=== PATIENT | male | born 1970 | race Caucasian/White ===

== ENCOUNTER 2022-04-21 21:50 | Inpatient (IN) | payer MEDICAID ==
[~2022-04-21] VITALS: Ht 170.2 cm; Wt 77.3 kg
[2022-04-21] MEDS: diatr meglu/diatrizoate 30ml oral sol.-(3 dose) bottle PO SCH (23:40)
[2022-04-21] MEDS ORDERED: IOHEXOL 12MG/ML oral solution 500 ML BOTTLE PO ONE (23:45)
[2022-04-21] MEDS ORDERED: iohexol 350MG/ML 100ml bottle IV ONE (23:47)
[2022-04-22] MEDS ORDERED: morphine 4 MG/ML inj SYRINge IV ONE
[2022-04-22] MEDS: diatr meglu/diatrizoate 30ml oral sol.-(3 dose) bottle PO SCH ×2 (00:25→01:10)
[2022-04-22 01:30] LABS: BASOPHILS # (AUTO) 0.1 X10'3 (0-0.2); BASOPHILS % (AUTO) 1.3 % (0-1); EOSINOPHILS # (AUTO) 0.3 X10'3 (0-0.9); EOSINOPHILS % (AUTO) 3.2 % (0-6); HEMATOCRIT 29.8 % (42.0-52.0); HEMOGLOBIN 9.8 g/dl (14.0-17.9); LYMPHOCYTES % (AUTO) 29.4 % (21-51); MEAN CORPUSCULAR HEMOGLOBIN 30.1 PG (27.0-31.0); MEAN CORPUSCULAR HGB CONC 32.8 g/dL (33.0-36.5); MEAN CORPUSCULAR VOLUME 91.6 FL (78-98); MEAN PLATELET VOLUME 7.4 FL (7.4-10.4); MONOCYTES # (AUTO) 1.1 X10'3 (0-0.9); MONOCYTES % (AUTO) 11.1 % (2-12); NEUTROPHILS # (AUTO) 5.6 X10'3 (1.8-7.7); PLATELET COUNT 358 X10'3 (140-440); RED BLOOD COUNT 3.25 X10'6 (4.70-6.10); RED CELL DISTRIBUTION WIDTH 16.5 % (11.5-14.5); WHITE BLOOD COUNT 10.2 X10'3 (4.5-11.0)
[2022-04-22 01:46] LABS: ALANINE AMINOTRANSFERASE 50 U/L (12-78); ALBUMIN 2.7 G/DL (3.4-5.0); ALBUMIN/GLOBULIN RATIO 0.5 (1.1-1.5); ALKALINE PHOSPHATASE 284 IU/L (46-116); ANION GAP 7 (8-16); ASPARTATE AMINO TRANSFERASE 40 U/L (10-37); BILIRUBIN,TOTAL 0.2 MG/DL (0.1-1.0); BLOOD UREA NITROGEN 8 MG/DL (7-18); BUN/CREATININE RATIO 12.3 (5.4-32.0); CHLORIDE 93 MMOL/L (99-107); CREATININE 0.65 MG/DL (0.60-1.10); GLUCOSE 112 MG/DL (70-104); POTASSIUM 4.2 MMOL/L (3.5-5.1); SODIUM 126 MMOL/L (135-145); TOTAL CARBON DIOXIDE 25.8 MMOL/L (24-32); TOTAL PROTEIN 8.2 G/DL (6.4-8.2); eGFR > 90 ML/MIN
[2022-04-22] MEDS ORDERED: vancomycin/NS 1 GM ADD-VANTAGE 250 ML IV ONE (03:40)
[2022-04-22 04:13] LABS: CLARITY,URINE CLEAR (Clear); GLUCOSE, URINE NEGATIVE (Neg); KETONES,URINE NEGATIVE (Neg); LEUKOCYTE ESTERASE ,URINE NEGATIVE (Neg); NITRITES, URINE NEGATIVE (Neg); OCCULT BLOOD,URINE NEGATIVE (Neg); PROTEIN,URINE NEGATIVE (Neg); UROBILINOGEN,URINE 0.2 E.U/dL (0.2-1.0)
[2022-04-22] MEDS ORDERED: bisacodyl 10mg suppository rectal RC PRN (04:15)
[2022-04-22] MEDS ORDERED: diphenhydrAMINE 50 mg/ml inj IV PRN (04:15)
[2022-04-22] MEDS ORDERED: HYDROcodone/acetaminophen 5mg/325mg tablet PO PRN (04:15)
[2022-04-22] MEDS ORDERED: acetaminophen 325mg tablet PO PRN ×2 (04:15)
[2022-04-22] MEDS ORDERED: morphine 2 MG/ML inj. syringe IV PRN (04:15)
[2022-04-22] MEDS ORDERED: HYDROmorphone inj. 0.5 MG/0.5 ML DISP.SYRIN IV PRN (04:15)
[2022-04-22] MEDS ORDERED: ondansetron 4mg rapidly disintigrating tab PO PRN (04:15)
[2022-04-22] MEDS ORDERED: acetaminophen 650mg rectal suppository RC PRN (04:15)
[2022-04-22] MEDS ORDERED: magnesium hydroxide 30ml (MOM) UD suspension PO PRN (04:15)
[2022-04-22] MEDS ORDERED: mag hydrox/Alum hydrox/simeth 30ml oral suspension PO PRN (04:15)
[2022-04-22] MEDS ORDERED: ondansetron/PF 4mg/2ml inj IV PRN (04:15)
[2022-04-22] MEDS ORDERED: diphenhydrAMINE 25mg capsule PO PRN (04:15)
[2022-04-22 04:16] LABS: COLOR,URINE STRAW (Yellow); UA COLLECTION TYPE NON-SPECIFIED
[2022-04-22] MEDS: dextrose 5%-1/2 normal saline 1,000 ML IV SCH ×2 (05:31→16:27)
[2022-04-22] MEDS: morphine 2 MG/ML inj. syringe IV PRN ×4 (05:31→22:11)
[2022-04-22] MEDS: ringers solution, lacted 1,000 ML IV SCH ×2 (05:32→14:20)
[2022-04-22] MEDS: ipratropium/albuterol 3ml nebule NEB SCH ×5 (07:00→23:00)
[2022-04-22 07:23] LABS: APTT 40 SECONDS (22-32)
[2022-04-22] MEDS: pantoprazole 40MG/NS 100ML BAG 100 ML IV SCH (07:30)
[2022-04-22] MEDS: docusate sod 100mg capsule PO SCH ×2 (07:36→18:32)
[2022-04-22] MEDS: HYDROcodone/acetaminophen 10/325mg tab PO PRN ×3 (07:37→20:33)
[2022-04-22] MEDS: piperacillin/tazo 4.5gm/100ml 100 ML IV SCH ×3 (07:40→23:21)
[2022-04-22 07:47] LABS: C-REACTIVE PROTEIN 3.22 MG/DL (0.0-0.5); CREATINE KINASE 39 U/L (39-308); LACTATE DEHYDROGENASE 175 U/L (85-227); LIPASE 135 U/L (73-393); PHOSPHORUS 5.1 MG/DL (2.3-4.5)
[2022-04-22] MEDS ORDERED: vancomycin/NS 1 GM ADD-VANTAGE 250 ML IV SCH (08:00)
[2022-04-22 08:59] LABS: URINE AMPHETAMINE SCREEN NEGATIVE (Neg); URINE BARBITUATE SCREEN NEGATIVE (Neg); URINE BENZODIAZEPINES SCREEN NEGATIVE (Neg); URINE CANNABINOID SCREEN NEGATIVE (Neg); URINE COCAINE SCREEN NEGATIVE (Neg); URINE METHADONE SCREEN NEGATIVE (Neg); URINE OPIATE SCREEN POSITIVE (Neg); URINE PHENCYCLIDINE SCREEN NEGATIVE (Neg)
--- NOTE | 2022-04-22 10:26 | NUR ---
PATIENT C/O CONSTIPATION AND REQUESTS TO HAVE SUPPOSITORY. MESSAGE SENT TO DR. LAWTON. PAGER ID: [phone] MESSAGE: ER BED #14 REDER. PATIENT C/O CONSTIPATION AND WOULD LIKE TO HAVE A DULCOLAX SUPPOSITORY. THANKS, CHRIS [id number]
[2022-04-22 11:57] LABS: HIV ANTIBODY 1&2 RAPID NON-REACTIVE (Neg)
[2022-04-22] MEDS ORDERED: bisacodyl 10mg suppository rectal RC STA (12:10)
[2022-04-22] MEDS ORDERED: ZINC220C12 PO (13:16)
[2022-04-22] MEDS ORDERED: FLUT1BLS4 INH (13:16)
[2022-04-22] MEDS ORDERED: PANT-47 PO (13:16)
[2022-04-22] MEDS ORDERED: MEGE400O6 PO (13:16)
[2022-04-22] MEDS ORDERED: ALB0.5UD NEB (13:16)
[2022-04-22] MEDS ORDERED: HYDR-3964 PO (13:16)
--- NOTE | 2022-04-22 17:23 | NUR ---
PT HAD TWO LARGE BOWEL MOVEMENTS AFTER THE DUCOLOX SUPPOSITORY WAS ADMINISTERED. BOTH BM WERE SOFT.
[2022-04-22] MEDS: VANCOmycin 1250MG/NS 250ml Bag 250 ML IV SCH (17:43)
[2022-04-22] MEDS ORDERED: temazepam 15mg capsule PO PRN (21:00)
--- NOTE | 2022-04-22 22:22 | NUR ---
While giving patient last dose of Morphine, patient looked at nurses watch whispered "1012" and began counting on his fingers when the next dose can be given.
--- NOTE | 2022-04-22 23:21 | NUR ---
1600 Zosyn was hung but never started on dya shift - Zosyn started at 1900 upon assessment of NOC shift nurse, 0000 dosage non-admin d/t q8hr order
[2022-04-23] MEDS: dextrose 5%-1/2 normal saline 1,000 ML IV SCH ×2 (00:12→05:30)
[2022-04-23] MEDS: ringers solution, lacted 1,000 ML IV SCH (00:18)
[2022-04-23 01:00] VITALS: BP 111/77
--- NOTE | 2022-04-23 01:00 | NUR ---
PATIENT ADMITTED TO ROOM 4014A FROM ER FOR POST OP ABDOMINAL ABSCESS. PLACED COMFORTABLE IN BED. VITAL SIGNS TAKEN AND RECORDED.
[2022-04-23] MEDS: morphine 2 MG/ML inj. syringe IV PRN ×5 (02:10→19:10)
[2022-04-23] MEDS: ipratropium/albuterol 3ml nebule NEB SCH ×2 (03:00→07:00)
[2022-04-23] MEDS: HYDROcodone/acetaminophen 10/325mg tab PO PRN ×4 (03:45→22:14)
[2022-04-23] MEDS: VANCOmycin 1250MG/NS 250ml Bag 250 ML IV SCH (05:29)
[2022-04-23 06:00] VITALS: BP 159/75
[2022-04-23 06:28] LABS: BASOPHILS # (AUTO) 0.1 X10'3 (0-0.2); BASOPHILS % (AUTO) 0.3 % (0-1); EOSINOPHILS # (AUTO) 0.1 X10'3 (0-0.9); EOSINOPHILS % (AUTO) 0.4 % (0-6); HEMATOCRIT 27.5 % (42.0-52.0); HEMOGLOBIN 8.9 g/dl (14.0-17.9); LYMPHOCYTES # (AUTO) 2.2 X10'3 (1.1-4.8); LYMPHOCYTES % (AUTO) 9.4 % (21-51); MEAN CORPUSCULAR HEMOGLOBIN 29.2 PG (27.0-31.0); MEAN CORPUSCULAR HGB CONC 32.5 g/dL (33.0-36.5); MEAN PLATELET VOLUME 7.8 FL (7.4-10.4); MONOCYTES # (AUTO) 2.5 X10'3 (0-0.9); MONOCYTES % (AUTO) 10.5 % (2-12); NEUTROPHILS # (AUTO) 18.6 X10'3 (1.8-7.7); NEUTROPHILS % (AUTO) 79.4 % (42-75); PLATELET COUNT 355 X10'3 (140-440); RED BLOOD COUNT 3.06 X10'6 (4.70-6.10); RED CELL DISTRIBUTION WIDTH 16.5 % (11.5-14.5); WHITE BLOOD COUNT 23.4 X10'3 (4.5-11.0)
--- NOTE | 2022-04-23 06:33 | NUR ---
Problems reprioritized. Patient report given, questions answered & plan of care reviewed with NIHARIKA CHAO.
[2022-04-23 06:47] LABS: ALANINE AMINOTRANSFERASE 32 U/L (12-78); ALBUMIN 2.3 G/DL (3.4-5.0); ALBUMIN/GLOBULIN RATIO 0.5 (1.1-1.5); ALKALINE PHOSPHATASE 226 IU/L (46-116); ANION GAP 11 (8-16); ASPARTATE AMINO TRANSFERASE 25 U/L (10-37); BILIRUBIN,TOTAL 0.3 MG/DL (0.1-1.0); BLOOD UREA NITROGEN 4 MG/DL (7-18); BUN/CREATININE RATIO 7.7 (5.4-32.0); CALCIUM 9.2 MG/DL (8.5-10.1); CHLORIDE 94 MMOL/L (99-107); CREATININE 0.52 MG/DL (0.60-1.10); GLUCOSE 108 MG/DL (70-104); POTASSIUM 3.9 MMOL/L (3.5-5.1); SODIUM 126 MMOL/L (135-145); TOTAL CARBON DIOXIDE 20.9 MMOL/L (24-32); TOTAL PROTEIN 7.4 G/DL (6.4-8.2); eGFR > 90 ML/MIN
[2022-04-23 07:07] LABS: TOTAL CELLS COUNTED 100
[2022-04-23 07:09] LABS: ANISOCYTOSIS 1+; LARGE PLATELETS FEW; PLATELET ESTIMATE NORMAL
[2022-04-23] MEDS: docusate sod 100mg capsule PO SCH ×2 (08:00→20:01)
[2022-04-23] MEDS: normal saline 1000ml 1,000 ML IV SCH ×2 (08:52→22:16)
[2022-04-23] MEDS: piperacillin/tazo 4.5gm/100ml 100 ML IV SCH ×2 (08:52→16:35)
[2022-04-23 10:00] VITALS: BP 114/72
[2022-04-23] MEDS: pantoprazole 40MG/NS 100ML BAG 100 ML IV SCH (10:12)
[2022-04-23] MEDS: linezolid 600mg tablet PO SCH ×2 (12:16→20:01)
[2022-04-23] MEDS: fluconazole 100mg tablet PO SCH (12:18)
--- NOTE | 2022-04-23 14:17 | NUR ---
PRESSURE ULCER EDUCATION: DEFINITION: A pressure ulcer is an area of skin that breaks down when you stay in one position too long. The constant pressure against the skin reduces the blood flow to that area and the affected tissue dies. CAUSES: "Being bedridden or in a wheelchair "Fragile skin "Having a chronic condition, such as diabetes or vascular disease "Inability to move certain parts of your body without assistance "Older age "Incontinence of urine or stool SYMPTOMS: "A reddened area that DOES NOT turn white when pressed on - this can be the beginning of a pressure ulcer "A blister, deep sore or a crater - these can be advanced pressure ulcers FIRST AID: "Relieve the pressure on this area "Keep the area clean and dry "Call your primary doctor if you see any of the above symptoms "DO NOT massage the area "DO NOT use a donut shaped or ring shaped pillow- these actually interfere with the blood flow and cause complications PREVENTION: "Check for pressure ulcers everyday "Change position at least every two hours to relieve pressure "Use items that help relieve pressure- pillows, sheepskin, foam padding, and powders. "Keep skin clean and dry "Eat healthy well balanced meals "Exercise daily IF YOU SEE ANY OF THESE SYMPTOMS WHILE IN THE HOSPITAL - TELL YOUR NURSE IMMEDIATELY. IF YOU SEE ANY OF THESE SYMPTOMS WHILE AT HOME OR HAVE ANY QUESTIONS OR CONCERNS ABOUT PRESSURE ULCERS - CALL YOUR PRIMARY DOCTOR IMMEDIATELY. Addendum: 04/23/22 at 1417 by Angela Coats LVN Amended: Links added.
--- NOTE | 2022-04-23 15:53 | NUR ---
administered Hydrocodone/acetamenophen to patient. First he states i would like the Morphine first because it just works better. I would then like to save that med in your hand for later. I instructed pt that he cannot save pain meds for later. He then states well when i was at "[facility]" I got 2 Montrose's when I wanted it and that stopped the pain.
--- NOTE | 2022-04-23 16:06 | NUR ---
Charting by Duy [place] reviewedf by Janet Martino RN
[2022-04-23 18:00] VITALS: BP 127/78
--- NOTE | 2022-04-23 18:52 | NUR ---
patient was seen by Dr georges, order given to remove allen catheter and DC PICC. patient very reluctant to have allen removed , educated with regards protocol for this, compliant to have condom catheter, and Ok by Dr Phelps. Refused to have PICC line removed. Dr Phelps stated ok to keep it in for now as patient is on multiple ABX. seen also by Dr Francis see note. . patient asking over and over for morphine. Educated on pain relief and protocol at [facility], compliant. Report given to Unique CHAO
[2022-04-23] MEDS ORDERED: HYDROcodone/acetaminophen 5mg/325mg tablet PO PRN (20:45)
[2022-04-23 22:00] VITALS: BP 106/65
[2022-04-23] MEDS: megestrol acetate 400mg/10ml UD oral suspension PO SCH (22:04)
[2022-04-24] MEDS: morphine 2 MG/ML inj. syringe IV PRN ×5 (00:08→20:44)
[2022-04-24] MEDS: piperacillin/tazo 4.5gm/100ml 100 ML IV SCH ×3 (00:08→16:27)
[2022-04-24] MEDS: albuterol 2.5 MG/3 ML nebule NEB SCH ×4 (02:50→21:00)
[2022-04-24] MEDS: HYDROcodone/acetaminophen 10/325mg tab PO PRN ×5 (03:11→22:51)
--- NOTE | 2022-04-24 03:33 | NUR ---
INTERNAL AUDIT MANAGER documentation: I have reviewed and agree with all interventions, assessments performed and documented by Chikis VILLARREAL.
[2022-04-24] MEDS ORDERED: VANCOMYCIN LEVEL IV ONE (04:30)
[2022-04-24 06:00] VITALS: BP 117/75
--- NOTE | 2022-04-24 06:48 | NUR ---
Problems reprioritized. Patient report given, questions answered & plan of care reviewed with Leodan CHAO.
[2022-04-24 07:13] LABS: BASOPHILS # (AUTO) 0.1 X10'3 (0-0.2); BASOPHILS % (AUTO) 0.3 % (0-1); EOSINOPHILS # (AUTO) 0.4 X10'3 (0-0.9); EOSINOPHILS % (AUTO) 2.3 % (0-6); HEMATOCRIT 24.9 % (42.0-52.0); HEMOGLOBIN 8.3 g/dl (14.0-17.9); LYMPHOCYTES # (AUTO) 2.4 X10'3 (1.1-4.8); LYMPHOCYTES % (AUTO) 14.9 % (21-51); MEAN CORPUSCULAR HEMOGLOBIN 29.6 PG (27.0-31.0); MEAN CORPUSCULAR HGB CONC 33.1 g/dL (33.0-36.5); MEAN CORPUSCULAR VOLUME 89.5 FL (78-98); MEAN PLATELET VOLUME 7.5 FL (7.4-10.4); MONOCYTES # (AUTO) 1.5 X10'3 (0-0.9); MONOCYTES % (AUTO) 9.6 % (2-12); NEUTROPHILS # (AUTO) 11.5 X10'3 (1.8-7.7); NEUTROPHILS % (AUTO) 72.9 % (42-75); PLATELET COUNT 313 X10'3 (140-440); RED BLOOD COUNT 2.79 X10'6 (4.70-6.10); RED CELL DISTRIBUTION WIDTH 15.9 % (11.5-14.5); WHITE BLOOD COUNT 15.8 X10'3 (4.5-11.0)
[2022-04-24] MEDS: pantoprazole 40mg Tablet.DR PO SCH ×3 (07:30→20:44)
[2022-04-24 07:36] LABS: ALANINE AMINOTRANSFERASE 26 U/L (12-78); ALBUMIN 2.3 G/DL (3.4-5.0); ALBUMIN/GLOBULIN RATIO 0.5 (1.1-1.5); ALKALINE PHOSPHATASE 185 IU/L (46-116); ANION GAP 11 (8-16); ASPARTATE AMINO TRANSFERASE 21 U/L (10-37); BILIRUBIN,TOTAL 0.3 MG/DL (0.1-1.0); BLOOD UREA NITROGEN 5 MG/DL (7-18); BUN/CREATININE RATIO 10.4 (5.4-32.0); CALCIUM 8.6 MG/DL (8.5-10.1); CHLORIDE 96 MMOL/L (99-107); CREATININE 0.48 MG/DL (0.60-1.10); GLUCOSE 106 MG/DL (70-104); POTASSIUM 3.1 MMOL/L (3.5-5.1); SODIUM 130 MMOL/L (135-145); TOTAL CARBON DIOXIDE 23.3 MMOL/L (24-32); TOTAL PROTEIN 6.9 G/DL (6.4-8.2); eGFR > 90 ML/MIN
[2022-04-24] MEDS: megestrol acetate 400mg/10ml UD oral suspension PO SCH (08:00)
[2022-04-24] MEDS: (Fluticasone/Umeclidin/Vilanter (Trelegy Ellipta 100-62.5-25) 1 PUFFS) IH SCH (08:00)
[2022-04-24] MEDS: docusate sod 100mg capsule PO SCH ×2 (08:00→20:00)
[2022-04-24] MEDS: linezolid 600mg tablet PO SCH ×2 (08:35→21:02)
[2022-04-24] MEDS: fluconazole 100mg tablet PO SCH (08:36)
[2022-04-24] MEDS: normal saline 1000ml 1,000 ML IV SCH ×3 (08:36→23:40)
[2022-04-24] MEDS ORDERED: potassium CL 10mEq/100ml bag 100 ML IV PRN (09:55)
[2022-04-24] MEDS ORDERED: POTASSIUM BICARB 20meq eff tab 20 MEQ TABLET.EFF PO PRN (09:55)
[2022-04-24] MEDS ORDERED: magnesium 4gm in 100ml NS 100 ML IV PRN (09:55)
[2022-04-24] MEDS ORDERED: magnesium 2GM in 50ml NS 50 ML IV PRN (09:55)
[2022-04-24 10:00] VITALS: BP 108/71
[2022-04-24 10:28] LABS: MAGNESIUM 1.5 MG/DL (1.5-2.4)
[2022-04-24] MEDS: zinc sulfate 220mg capsule PO SCH ×2 (10:39→20:00)
[2022-04-24] MEDS: POTASSIUM BICARB 20meq eff tab 20 MEQ TABLET.EFF PO PRN ×3 (10:42→21:02)
--- NOTE | 2022-04-24 13:22 | NUR ---
Initial: Pt admit for intra-abdominal abscess s/p hernia repair surgery and sepsis. Per wound care note abdominal surgical wounds are full thickness and pt with a stage II PU to sacrum. Noted pt receiving Zyvox during admit. Attempted three visits at bedside for high protein and low tyramine nutrition therapy education however pt unavailable each time. Will attempt visit at another time. Pt initially on a CHO controlled diet documented with 50% PO intake of first meal up to 75% PO intake of second meal. D/w RN recommendation for diet change to regular as pt with no documented PMH DM and BG levels controlled during admit. LBM 04/24, receiving routine and PRN bowel care. Will continue to follow closely and monitor need for nutrition intervention pending further trends in PO intake. Recommendations: 1) Continue regular diet 2) Monitor need for ONS/additional protein 3) Routine bowel care 4) Scaled weight this admit; subsequent weekly scaled weights Addendum: 04/24/22 at [address] Amended: Links added.
[2022-04-24 18:00] VITALS: BP 120/77
--- NOTE | 2022-04-24 19:31 | NUR ---
Patient in room ORTHO 4014. I have received report from JEREMIE Alcocer and had the opportunity to ask questions and assume patient care. Pt in bed resting. Fluids verified.
[2022-04-24] MEDS: K and/or MAG REPLACEMENT MC SCH (20:57)
[2022-04-24 22:00] VITALS: BP 130/86
[2022-04-25] MEDS: piperacillin/tazo 4.5gm/100ml 100 ML IV SCH ×3 (00:22→16:10)
[2022-04-25] MEDS: morphine 2 MG/ML inj. syringe IV PRN ×4 (02:21→18:54)
[2022-04-25] MEDS: albuterol 2.5 MG/3 ML nebule NEB SCH ×4 (03:00→20:00)
[2022-04-25 05:00] VITALS: BP 130/84
[2022-04-25] MEDS: HYDROcodone/acetaminophen 10/325mg tab PO PRN ×4 (06:03→20:34)
--- NOTE | 2022-04-25 06:40 | NUR ---
Problems reprioritized. Patient report given, questions answered & plan of care reviewed with Kate at bedside. Drip verified. Pt in no acute distress at time of handoff.
--- NOTE | 2022-04-25 06:48 | NUR ---
Patient in room ORTHO 4014. I have received report from JEREMIE Khan and had the opportunity to ask questions and assume patient care.
[2022-04-25 07:16] LABS: BASOPHILS # (AUTO) 0.1 X10'3 (0-0.2); BASOPHILS % (AUTO) 0.8 % (0-1); EOSINOPHILS # (AUTO) 0.5 X10'3 (0-0.9); EOSINOPHILS % (AUTO) 5.6 % (0-6); HEMOGLOBIN 8.6 g/dl (14.0-17.9); LYMPHOCYTES # (AUTO) 2.1 X10'3 (1.1-4.8); MEAN CORPUSCULAR HEMOGLOBIN 29.7 PG (27.0-31.0); MEAN CORPUSCULAR HGB CONC 33.1 g/dL (33.0-36.5); MEAN CORPUSCULAR VOLUME 89.7 FL (78-98); MEAN PLATELET VOLUME 7.5 FL (7.4-10.4); MONOCYTES # (AUTO) 0.8 X10'3 (0-0.9); MONOCYTES % (AUTO) 9.4 % (2-12); NEUTROPHILS # (AUTO) 5.4 X10'3 (1.8-7.7); NEUTROPHILS % (AUTO) 60.2 % (42-75); PLATELET COUNT 338 X10'3 (140-440); RED CELL DISTRIBUTION WIDTH 15.6 % (11.5-14.5); WHITE BLOOD COUNT 8.9 X10'3 (4.5-11.0)
[2022-04-25 07:33] LABS: ALANINE AMINOTRANSFERASE 23 U/L (12-78); ALBUMIN 2.4 G/DL (3.4-5.0); ALBUMIN/GLOBULIN RATIO 0.5 (1.1-1.5); ALKALINE PHOSPHATASE 172 IU/L (46-116); ANION GAP 8 (8-16); ASPARTATE AMINO TRANSFERASE 21 U/L (10-37); BILIRUBIN,TOTAL 0.2 MG/DL (0.1-1.0); BLOOD UREA NITROGEN 5 MG/DL (7-18); BUN/CREATININE RATIO 10.2 (5.4-32.0); CALCIUM 8.7 MG/DL (8.5-10.1); CHLORIDE 96 MMOL/L (99-107); CREATININE 0.49 MG/DL (0.60-1.10); GLUCOSE 105 MG/DL (70-104); MAGNESIUM 1.4 MG/DL (1.5-2.4); POTASSIUM 3.5 MMOL/L (3.5-5.1); SODIUM 129 MMOL/L (135-145); eGFR > 90 ML/MIN
[2022-04-25] MEDS: zinc sulfate 220mg capsule PO SCH ×2 (08:00→20:00)
[2022-04-25] MEDS: docusate sod 100mg capsule PO SCH ×2 (08:00→20:29)
[2022-04-25] MEDS: pantoprazole 40mg Tablet.DR PO SCH ×3 (08:00→20:29)
[2022-04-25] MEDS: (Fluticasone/Umeclidin/Vilanter (Trelegy Ellipta 100-62.5-25) 1 PUFFS) IH SCH (08:00)
[2022-04-25] MEDS: K and/or MAG REPLACEMENT MC SCH ×2 (08:00→20:00)
[2022-04-25] MEDS: megestrol acetate 400mg/10ml UD oral suspension PO SCH (08:00)
[2022-04-25] MEDS: linezolid 600mg tablet PO SCH ×2 (08:24→20:29)
[2022-04-25] MEDS: fluconazole 100mg tablet PO SCH (08:26)
[2022-04-25] MEDS: normal saline 1000ml 1,000 ML IV SCH (09:40)
[2022-04-25 10:00] VITALS: BP 135/85
--- NOTE | 2022-04-25 11:44 | NUR ---
F/u: Pt seen at bedside for written and verbal high protein and low tyramine nutrition therapy education. All of patient's questions were answered at this time. RD contact information provided and pt encouraged to reach out if needed. Pt endorses a good appetite and states he isn't quite getting full from meals. Food preferences were obtained and d/w dietary, see below. Pt denies food allergies or difficulty chewing/swallowing. LBM 04/25. Will continue to follow. Recommendations: 1) Continue regular diet 2) [place] food preferences: [place] juice WB; strawberry yogurt BIDBL; soda and double meat BIDLD; no hot cereal 3) Routine bowel care 4) Scaled weight this admit; subsequent weekly scaled weights Addendum: 04/25/22 at [address] Amended: Links added.
--- NOTE | 2022-04-25 15:23 | NUR ---
PAGER ID: [phone] MESSAGE: Elisa [phone] [place] room 4014A - patient would like to know how much longer is he going to be staying here and what the plan is.
[2022-04-25] MEDS: magnesium Cl slow-release 64mg tablet PO PRN (17:46)
[2022-04-25 18:00] VITALS: BP 148/93
--- NOTE | 2022-04-25 18:23 | NUR ---
Problems reprioritized. Patient report given, questions answered & plan of care reviewed with JEREMIE Miller.
--- NOTE | 2022-04-25 18:43 | NUR ---
Patient in room ORTHO 4014. I have received report from JONES CHAO and had the opportunity to ask questions and assume patient care.
[2022-04-25 22:00] VITALS: BP 137/87
[2022-04-25] MEDS ORDERED: albuterol 2.5 MG/3 ML nebule NEB PRN (22:00)
[2022-04-26] MEDS: piperacillin/tazo 4.5gm/100ml 100 ML IV SCH ×4 (00:21→23:46)
[2022-04-26] MEDS: HYDROcodone/acetaminophen 10/325mg tab PO PRN ×5 (01:03→23:11)
[2022-04-26] MEDS: normal saline 1000ml 1,000 ML IV SCH ×3 (01:56→16:00)
[2022-04-26] MEDS: morphine 2 MG/ML inj. syringe IV PRN ×4 (02:56→19:42)
[2022-04-26 05:00] VITALS: BP 131/86
--- NOTE | 2022-04-26 06:43 | NUR ---
Patient in room ORTHO 4014. I have received report from JEREMIE Miller and had the opportunity to ask questions and assume patient care.
[2022-04-26] MEDS: megestrol acetate 400mg/10ml UD oral suspension PO SCH (08:00)
[2022-04-26] MEDS: K and/or MAG REPLACEMENT MC SCH ×2 (08:00→20:00)
[2022-04-26] MEDS: zinc sulfate 220mg capsule PO SCH ×2 (08:00→20:00)
[2022-04-26] MEDS: pantoprazole 40mg Tablet.DR PO SCH ×3 (08:00→19:41)
[2022-04-26] MEDS: (Fluticasone/Umeclidin/Vilanter (Trelegy Ellipta 100-62.5-25) 1 PUFFS) IH SCH (08:00)
[2022-04-26] MEDS: docusate sod 100mg capsule PO SCH ×2 (08:00→20:00)
[2022-04-26] MEDS: fluconazole 100mg tablet PO SCH (08:49)
[2022-04-26] MEDS: linezolid 600mg tablet PO SCH ×2 (08:50→19:41)
[2022-04-26 10:00] VITALS: BP 139/84
[2022-04-26 11:05] LABS: BASOPHILS # (AUTO) 0.1 X10'3 (0-0.2); BASOPHILS % (AUTO) 0.9 % (0-1); EOSINOPHILS # (AUTO) 0.6 X10'3 (0-0.9); EOSINOPHILS % (AUTO) 6.2 % (0-6); HEMATOCRIT 26.4 % (42.0-52.0); HEMOGLOBIN 8.8 g/dl (14.0-17.9); LYMPHOCYTES # (AUTO) 2.5 X10'3 (1.1-4.8); LYMPHOCYTES % (AUTO) 27.8 % (21-51); MEAN CORPUSCULAR HEMOGLOBIN 29.9 PG (27.0-31.0); MEAN CORPUSCULAR HGB CONC 33.4 g/dL (33.0-36.5); MEAN CORPUSCULAR VOLUME 89.6 FL (78-98); MONOCYTES # (AUTO) 0.9 X10'3 (0-0.9); MONOCYTES % (AUTO) 9.5 % (2-12); NEUTROPHILS % (AUTO) 55.6 % (42-75); PLATELET COUNT 391 X10'3 (140-440); RED BLOOD COUNT 2.94 X10'6 (4.70-6.10); RED CELL DISTRIBUTION WIDTH 15.9 % (11.5-14.5)
[2022-04-26 11:17] LABS: ALANINE AMINOTRANSFERASE 23 U/L (12-78); ALBUMIN 2.4 G/DL (3.4-5.0); ALBUMIN/GLOBULIN RATIO 0.5 (1.1-1.5); ALKALINE PHOSPHATASE 165 IU/L (46-116); ANION GAP 8 (8-16); ASPARTATE AMINO TRANSFERASE 21 U/L (10-37); BILIRUBIN,TOTAL 0.1 MG/DL (0.1-1.0); BLOOD UREA NITROGEN 6 MG/DL (7-18); BUN/CREATININE RATIO 10.3 (5.4-32.0); CALCIUM 8.6 MG/DL (8.5-10.1); CHLORIDE 95 MMOL/L (99-107); CREATININE 0.58 MG/DL (0.60-1.10); GLUCOSE 132 MG/DL (70-104); MAGNESIUM 1.4 MG/DL (1.5-2.4); POTASSIUM 3.9 MMOL/L (3.5-5.1); SODIUM 129 MMOL/L (135-145); TOTAL CARBON DIOXIDE 25.8 MMOL/L (24-32); TOTAL PROTEIN 7.2 G/DL (6.4-8.2); eGFR > 90 ML/MIN
--- NOTE | 2022-04-26 15:35 | NUR ---
Notified of lab notification that blood cultures from 04/22 right arm came back positive for gram positive aerobic rods.
--- NOTE | 2022-04-26 15:35 | NUR ---
PAGER ID: [phone] MESSAGE: Elisa [phone] RE: [facility]ak[facility] [place] room 4014A - blood cultures drawn 04/22 from right arm came back positive for gram (+) aerobic rods
[2022-04-26] MEDS: magnesium Cl slow-release 64mg tablet PO PRN (15:59)
--- NOTE | 2022-04-26 18:35 | NUR ---
Problems reprioritized. Patient report given, questions answered & plan of care reviewed with JEREMIE Miller.
--- NOTE | 2022-04-26 18:58 | NUR ---
Patient in room ORTHO 4014. I have received report from JONES CHAO and had the opportunity to ask questions and assume patient care.
[2022-04-27] MEDS: morphine 2 MG/ML inj. syringe IV PRN ×5 (02:03→22:59)
[2022-04-27] MEDS: normal saline 1000ml 1,000 ML IV SCH ×3 (03:00→15:19)
[2022-04-27 05:00] VITALS: BP 143/88
[2022-04-27] MEDS: HYDROcodone/acetaminophen 10/325mg tab PO PRN ×4 (05:25→20:15)
[2022-04-27 05:54] LABS: BASOPHILS # (AUTO) 0.1 X10'3 (0-0.2); BASOPHILS % (AUTO) 0.7 % (0-1); EOSINOPHILS # (AUTO) 0.7 X10'3 (0-0.9); EOSINOPHILS % (AUTO) 8.3 % (0-6); HEMATOCRIT 26.5 % (42.0-52.0); HEMOGLOBIN 8.7 g/dl (14.0-17.9); LYMPHOCYTES # (AUTO) 2.3 X10'3 (1.1-4.8); LYMPHOCYTES % (AUTO) 28.3 % (21-51); MEAN CORPUSCULAR HGB CONC 32.9 g/dL (33.0-36.5); MEAN CORPUSCULAR VOLUME 88.1 FL (78-98); MEAN PLATELET VOLUME 7.5 FL (7.4-10.4); MONOCYTES # (AUTO) 0.8 X10'3 (0-0.9); MONOCYTES % (AUTO) 10.3 % (2-12); NEUTROPHILS # (AUTO) 4.3 X10'3 (1.8-7.7); NEUTROPHILS % (AUTO) 52.4 % (42-75); PLATELET COUNT 416 X10'3 (140-440); RED BLOOD COUNT 3.01 X10'6 (4.70-6.10); RED CELL DISTRIBUTION WIDTH 15.9 % (11.5-14.5); WHITE BLOOD COUNT 8.2 X10'3 (4.5-11.0)
[2022-04-27 05:55] LABS: ALANINE AMINOTRANSFERASE 21 U/L (12-78); ALBUMIN 2.3 G/DL (3.4-5.0); ALBUMIN/GLOBULIN RATIO 0.5 (1.1-1.5); ALKALINE PHOSPHATASE 157 IU/L (46-116); ANION GAP 9 (8-16); ASPARTATE AMINO TRANSFERASE 17 U/L (10-37); BILIRUBIN,TOTAL 0.2 MG/DL (0.1-1.0); BLOOD UREA NITROGEN 3 MG/DL (7-18); BUN/CREATININE RATIO 6.1 (5.4-32.0); CALCIUM 8.7 MG/DL (8.5-10.1); CHLORIDE 95 MMOL/L (99-107); CREATININE 0.49 MG/DL (0.60-1.10); GLUCOSE 99 MG/DL (70-104); MAGNESIUM 1.4 MG/DL (1.5-2.4); POTASSIUM 3.2 MMOL/L (3.5-5.1); SODIUM 129 MMOL/L (135-145); TOTAL CARBON DIOXIDE 24.8 MMOL/L (24-32); TOTAL PROTEIN 6.9 G/DL (6.4-8.2); eGFR > 90 ML/MIN
--- NOTE | 2022-04-27 06:47 | NUR ---
Problems reprioritized. Patient report given, questions answered & plan of care reviewed with LEEANNA RN.
--- NOTE | 2022-04-27 07:10 | NUR ---
Patient in room ORTHO 4014. I have received report from JEREMIE Miller and had the opportunity to ask questions and assume patient care.
[2022-04-27 10:00] VITALS: BP 134/86
[2022-04-27] MEDS: K and/or MAG REPLACEMENT MC SCH ×2 (10:05→20:00)
[2022-04-27] MEDS ORDERED: potassium CL 10mEq/100ml bag 100 ML IV PRN (11:40)
[2022-04-27] MEDS ORDERED: magnesium 2GM in 50ml NS 50 ML IV PRN (11:40)
[2022-04-27] MEDS ORDERED: magnesium 4gm in 100ml NS 100 ML IV PRN (11:40)
[2022-04-27] MEDS ORDERED: POTASSIUM BICARB 20meq eff tab 20 MEQ TABLET.EFF PO PRN (11:40)
[2022-04-27] MEDS ORDERED: zinc sulfate 220mg capsule PO SCH (11:45)
[2022-04-27] MEDS ORDERED: docusate sod 100mg capsule PO PRN (11:45)
[2022-04-27] MEDS: piperacillin/tazo 4.5gm/100ml 100 ML IV SCH ×2 (11:48→17:26)
[2022-04-27] MEDS: fluconazole 100mg tablet PO SCH (11:49)
[2022-04-27] MEDS: pantoprazole 40mg Tablet.DR PO SCH ×2 (11:49→20:15)
[2022-04-27] MEDS: linezolid 600mg tablet PO SCH ×2 (11:49→20:15)
[2022-04-27] MEDS: zinc sulfate 220mg capsule PO SCH (11:49)
[2022-04-27] MEDS: POTASSIUM BICARB 20meq eff tab 20 MEQ TABLET.EFF PO PRN ×2 (11:56→17:26)
[2022-04-27] MEDS: magnesium Cl slow-release 64mg tablet PO PRN ×2 (11:56→17:26)
[2022-04-27 18:00] VITALS: BP 142/93
--- NOTE | 2022-04-27 18:52 | NUR ---
Patient in room ORTHO 4014. I have received report from LEEANNA CHAO and had the opportunity to ask questions and assume patient care.
--- NOTE | 2022-04-27 19:00 | NUR ---
Problems reprioritized. Patient report given, questions answered & plan of care reviewed with JEREMIE Miller.
[2022-04-27] MEDS ORDERED: K and/or MAG REPLACEMENT MC SCH (20:00)
[2022-04-27 22:00] VITALS: BP 147/96
[2022-04-28] MEDS: piperacillin/tazo 4.5gm/100ml 100 ML IV SCH ×3 (00:46→16:36)
[2022-04-28] MEDS: normal saline 1000ml 1,000 ML IV SCH ×3 (01:10→21:06)
[2022-04-28] MEDS: HYDROcodone/acetaminophen 10/325mg tab PO PRN ×5 (02:45→22:49)
[2022-04-28] MEDS: morphine 2 MG/ML inj. syringe IV PRN ×4 (03:51→20:59)
[2022-04-28 06:00] VITALS: BP 129/80
--- NOTE | 2022-04-28 06:16 | NUR ---
Problems reprioritized. Patient report given, questions answered & plan of care reviewed with RODNEY CHAO.
[2022-04-28 07:03] LABS: MAGNESIUM 1.4 MG/DL (1.5-2.4); POTASSIUM 3.6 MMOL/L (3.5-5.1)
--- NOTE | 2022-04-28 07:10 | NUR ---
Patient in room ORTHO 4014. I have received report from Angela CHAO and Christie VILLARREAL and had the opportunity to ask questions and assume patient care.
[2022-04-28] MEDS: pantoprazole 40mg Tablet.DR PO SCH ×2 (07:24→20:58)
[2022-04-28] MEDS: linezolid 600mg tablet PO SCH ×2 (07:24→20:58)
[2022-04-28] MEDS: fluconazole 100mg tablet PO SCH (07:25)
[2022-04-28] MEDS: K and/or MAG REPLACEMENT MC SCH ×2 (08:00→20:00)
[2022-04-28] MEDS: magnesium Cl slow-release 64mg tablet PO PRN ×2 (09:44→21:08)
[2022-04-28 10:00] VITALS: BP 148/88
[2022-04-28] MEDS ORDERED: FLUC100T64 PO (13:09)
[2022-04-28] MEDS ORDERED: PIPE3.3739 IV (13:09)
[2022-04-28] MEDS ORDERED: LINE600T14 PO (13:09)
--- NOTE | 2022-04-28 14:30 | NUR ---
Dressing care to bilateral abdominal wounds and sacrum done by CHERELLE Soriano pictures taken assisted in care per WOC orders
[2022-04-28 18:00] VITALS: BP 157/99
--- NOTE | 2022-04-28 18:45 | NUR ---
Agree with Alencia WELDING MACHINE OPERATOR ARC assessment on patient.
--- NOTE | 2022-04-28 18:50 | NUR ---
Problems reprioritized. Patient report given, questions answered & plan of care reviewed with JEREMIE Kamara.
--- NOTE | 2022-04-28 18:52 | NUR ---
Patient in room ORTHO 4014. I have received report from JOZEF VILLARREAL and had the opportunity to ask questions and assume patient care.
[2022-04-28 22:00] VITALS: BP 158/96
[2022-04-29] MEDS: piperacillin/tazo 4.5gm/100ml 100 ML IV SCH ×2 (00:45→08:27)
[2022-04-29] MEDS: morphine 2 MG/ML inj. syringe IV PRN ×2 (02:22→09:22)
[2022-04-29] MEDS: HYDROcodone/acetaminophen 10/325mg tab PO PRN ×2 (05:30→11:41)
[2022-04-29 06:00] VITALS: BP 147/93
--- NOTE | 2022-04-29 06:30 | NUR ---
Problems reprioritized. Patient report given, questions answered & plan of care reviewed with RODNEY CHAO.
--- NOTE | 2022-04-29 06:58 | NUR ---
Patient in room ORTHO 4014. I have received report from Radha Garcia RN and had the opportunity to ask questions and assume patient care.
[2022-04-29] MEDS: pantoprazole 40mg Tablet.DR PO SCH (08:26)
[2022-04-29] MEDS: linezolid 600mg tablet PO SCH (08:26)
[2022-04-29] MEDS: zinc sulfate 220mg capsule PO SCH (08:26)
[2022-04-29] MEDS: fluconazole 100mg tablet PO SCH (08:28)
[2022-04-29 10:00] VITALS: BP 156/90
--- NOTE | 2022-04-29 12:04 | NUR ---
Pt. [id number] called report to [facility] spoke with Unique CHAO, all questions answered. Pt. transported via [place] with [facility].
== END 2022-04-29 12:15 | DRG 720 ==
LOC: ER 21:51 → ED HOLD 04-22 04:17 → EDBEDREQ 04-23 00:28 → ORTHO 4S 04-23 00:47
PROVIDERS: ADMIT Family Medicine; ATTEND Internal Medicine
PROC: BW211ZZ Computerized Tomography (CT Scan) of Abdomen and Pelvis using Low Osmolar Contrast (ICD-10-PCS; principal; 2022-04-21)
DX: A41.9 Sepsis, unspecified organism (principal); K65.1 Peritoneal abscess; J18.9 Pneumonia, unspecified organism; J90 Pleural effusion, not elsewhere classified; E87.1 Hypo-osmolality and hyponatremia; Z93.0 Tracheostomy status; E86.1 Hypovolemia; E87.6 Hypokalemia; Z20.822 Contact with and (suspected) exposure to COVID-19; D64.9 Anemia, unspecified; E83.42 Hypomagnesemia; I10 Essential (primary) hypertension; J98.11 Atelectasis; K27.9 Peptic ulcer, site unspecified, unspecified as acute or chronic, without hemorrhage or perforation; Z87.891 Personal history of nicotine dependence; Z79.899 Other long term (current) drug therapy
CPT/HCPCS: 36410; 36415; 71045; 71250; 74177; 76942; 80053; 80305; 81003; 82550; 83605; 83615; 83690; 83735; 84100; 84132; 84145; 84443; 85007; 85025; 85610; 85651; 85730; 86140; 86592; 86703; 87040; 87081; 87635; 94760; 96374; 97110; 97161; 97530; 99285; A4349; A4649; A6209; A6212; A6213; A6243; A6258; A6260; A6449; C1751; C9113; G0378; J2270; J2543; J3370; J7030; J7042; J7070; J7120; Q9963; Q9967